=== PATIENT | female | born 1995 | race Caucasian/White ===

== ENCOUNTER 2018-01-26 19:35 | Emergency (ER) | payer SELFPAY ==
[~2018-01-26] VITALS: Ht 152.4 cm; Wt 63.6 kg
[2018-01-26] MEDS ORDERED: ALBU8HFA IH (19:38)
[2018-01-26 20:41] VITALS: BP 105/60
[2018-01-26] MEDS ORDERED: ACETAMINOPHEN 325 MG TABLET PO ONE (20:45)
== END 2018-01-26 20:53 | disposition home or self-care (01) ==
LOC: EMS 19:36
DX: F41.9 Anxiety disorder, unspecified (principal); R07.89 Other chest pain; J45.909 Unspecified asthma, uncomplicated; Z88.8 Allergy status to other drugs, medicaments and biological substances
CPT/HCPCS: 93005; 99283